=== PATIENT | female | born 1965 | race Caucasian/White ===

== ENCOUNTER 2017-11-29 13:58 | Emergency (ER) | payer BC ==
[2017-11-29] MEDS ORDERED: SODIUM CHLORIDE 0.9% 500 ML IV STA (14:39)
--- NOTE | 2017-11-29 14:43 | ED ---
General Adult HPI - General Chief complaint: Allergic Reaction Stated complaint: allergic reaction to PCN Time Seen by Provider: 11/29/17 14:31 Source: patient, RN notes reviewed, old records reviewed Mode of arrival: wheelchair Limitations: no limitations - History of Present Illness Initial comments: 52-year-old female presents for evaluation of what she believes is an ALLERGIC reaction. Patient has no chronic medical problems. She states that 2 days ago she saw her family doctor who prescribed amoxicillin for concerns of sinus infection. Patient denied any nasal congestion, no sore throat , rhinorrhea. She taken amoxicillin most recently yesterday evening, she had been feeling better yesterday evening, she did develop a rash that was on her chest and upper extremities. She called her family doctor who changed her prescription. This morning she began to feel worse, worsening rash which was predominately on her chest. She did take Benadryl prior to arrival. Patient denies cough, denies fever. She states she's had some pain in her neck. She denies lul chest pain. Patient has also had some abdominal cramping. No significant nausea vomiting or diarrhea. - Related Data Previous Rx's Medication Instructions Recorded methylPREDNISolone Dose Pack 4 mg PO DIRECTED #21 package 11/29/17 [Medrol Dose Pack] Allergies Allergy/AdvReac Type Severity Reaction Status Date / Time amoxicillin Allergy Rash/Hives Verified 11/29/17 14:57 Review of Systems ROS Statement: Those systems with pertinent positive or pertinent negative responses have been documented in the HPI. ROS Other: All systems not noted in ROS Statement are negative. Past Medical History Past Medical History: No Reported History History of Any Multi-Drug Resistant Organisms: None Reported Past Surgical History: No Surgical Hx Reported Additional Past Surgical History / Comment(s): molar Past Psychological History: No Psychological Hx Reported Smoking Status: Never smoker Past Alcohol Use History: Rare Past Drug Use History: None Reported General Exam Limitations: no limitations General appearance: alert, in no apparent distress Head exam: Present: atraumatic, normocephalic Eye exam: Present: normal appearance, PERRL ENT exam: Present: normal exam Neck exam: Present: normal inspection. Absent: tenderness, meningismus Respiratory exam: Present: normal lung sounds bilaterally. Absent: respiratory distress, wheezes Cardiovascular Exam: Present: regular rate, normal rhythm GI/Abdominal exam: Present: soft. Absent: distended, tenderness Extremities exam: Present: normal inspection, normal capillary refill. Absent: pedal edema Neurological exam: Present: alert, oriented X3, CN II-XII intact. Absent: motor sensory deficit Psychiatric exam: Present: normal affect, normal mood Skin exam: Present: warm, dry, rash (Patient has some erythema on her chest, and rash on the extremities is minimal), erythema. Absent: cyanosis, diaphoretic, urticaria, vesicles, petechiae Course Vital Signs 11/29/17 11/29/17 11/29/17 14:05 14:10 15:05 Temperature 98.3 F Pulse Rate 89 88 84 Respiratory 16 18 Rate Blood Pressure 152/86 154/95 O2 Sat by Pulse 98 100 100 Oximetry 11/29/17 15:35 Temperature Pulse Rate 68 Respiratory 16 Rate Blood Pressure 143/76 O2 Sat by Pulse 100 Oximetry EKG Findings - EKG Comments: EKG Findings:: EKG: Sinus rhythm, possible left atrial enlargement, no ST segment elevation or depression rate of 75, IL interval 1:30, QRS duration 82, QTC 464 Medical Decision Making - Medical Decision Making 52-year-old female presenting for suspected ALLERGIC reaction. Patient did have a neck pain associated with this. No significant dyspnea. She was on amoxicillin for sinus infection although she does not have a history that supported this. Workup includes EKG which is normal sinus rhythm with no ST segment changes. Chest x-ray that shows concern for bronchitis, laboratory studies reveal a normal hemoglobin, normal white blood cell count, normal electrolytes, troponin is negative. D-dimer was obtained, this was positive at 10.9, CT angiography was obtained this is negative for PE but did show bronchitis as well as a 2.3 cm nodular density. Patient is informed of this and will follow-up with her primary care physician regarding this nodule. There is also bronchitis finding this is suggestive of viral infection. Regarding the patient's significant elevated d-dimer, she has no lower extremity pain or swelling. She will monitor for calf tenderness or swelling and present for evaluation of DVT if the cyst present. Patient will follow-up with her primary care physician. She will return with worsening or changing symptoms. She is instructed to stop amoxicillin. - Lab Data Result diagrams: 11/29/17 15:00 11/29/17 15:00 Lab Results 06/23/18 06/23/18 06/23/18 Range/Units 15:00 15:00 15:00 WBC 5.6 (3.8-10.6) k/uL RBC 5.15 (3.80-5.40) m/uL Hgb 16.1 H (11.4-16.0) gm/dL Hct 45.6 (34.0-46.0) % MCV 88.5 (80.0-100.0) fL MCH 31.2 (25.0-35.0) pg MCHC 35.2 (31.0-37.0) g/dL RDW 12.8 (11.5-15.5) % Plt Count 165 (150-450) k/uL Neutrophils % (Manual) 75 % Band Neutrophils % 2 % Lymphocytes % (Manual) 10 % Monocytes % (Manual) 7 % Eosinophils % (Manual) 6 % Neutrophils # (Manual) 4.30 (1.3-7.7) k/uL Lymphocytes # (Manual) 0.56 L (1.0-4.8) k/uL Monocytes # (Manual) 0.39 (0-1.0) k/uL Eosinophils # (Manual) 0.34 (0-0.7) k/uL Nucleated RBCs 0 (0-0) /100 WBC Manual Slide Review Performed RBC Morphology Normal PT (9.0-12.0) sec INR (<1.2) APTT (22.0-30.0) sec D-Dimer (<0.60) mg/L FEU Sodium 139 (137-145) mmol/L Potassium 3.6 (3.5-5.1) mmol/L Chloride 99 (98-107) mmol/L Carbon Dioxide 29 (22-30) mmol/L Anion Gap 11 mmol/L BUN 12 (7-17) mg/dL Creatinine 0.70 (0.52-1.04) mg/dL Est GFR (CKD-EPI)AfAm >90 (>60 ml/min/1.73 sqM) Est GFR (CKD-EPI)NonAf >90 (>60 ml/min/1.73 sqM) Glucose 91 (74-99) mg/dL Calcium 9.0 (8.4-10.2) mg/dL Magnesium 2.2 (1.6-2.3) mg/dL Total Bilirubin 0.4 (0.2-1.3) mg/dL AST 97 H (14-36) U/L ALT 75 H (9-52) U/L Alkaline Phosphatase 72 (38-126) U/L Total Creatine Kinase 28 L (30-135) U/L CK-MB (CK-2) <0.2 (0.0-2.4) ng/mL CK-MB (CK-2) Rel Index Troponin I <0.012 (0.000-0.034) ng/mL NT-Pro-B Natriuret Pep pg/mL Total Protein 7.1 (6.3-8.2) g/dL Albumin 4.1 (3.5-5.0) g/dL Urine Color Urine Appearance (Clear) Urine pH (5.0-8.0) Ur Specific [place] (1.001-1.035) Urine Protein (Negative) Urine Glucose (UA) (Negative) Urine Ketones (Negative) Urine Blood (Negative) Urine Nitrite (Negative) Urine Bilirubin (Negative) Urine Urobilinogen (<2.0) mg/dL Ur Leukocyte Esterase (Negative) Urine RBC (0-5) /hpf Urine WBC (0-5) /hpf Ur Squamous Epith Cells (0-4) /hpf Hyaline Casts (0-2) /lpf Urine Mucus (None) /hpf 11/29/17 11/29/17 11/29/17 Range/Units 15:00 15:00 15:00 WBC (3.8-10.6) k/uL RBC (3.80-5.40) m/uL Hgb (11.4-16.0) gm/dL Hct (34.0-46.0) % MCV (80.0-100.0) fL MCH (25.0-35.0) pg MCHC (31.0-37.0) g/dL RDW (11.5-15.5) % Plt Count (150-450) k/uL Neutrophils % (Manual) % Band Neutrophils % % Lymphocytes % (Manual) % Monocytes % (Manual) % Eosinophils % (Manual) % Neutrophils # (Manual) (1.3-7.7) k/uL Lymphocytes # (Manual) (1.0-4.8) k/uL Monocytes # (Manual) (0-1.0) k/uL Eosinophils # (Manual) (0-0.7) k/uL Nucleated RBCs (0-0) /100 WBC Manual Slide Review RBC Morphology PT 9.6 (9.0-12.0) sec INR 1.0 (<1.2) APTT 26.0 (22.0-30.0) sec D-Dimer 10.99 H (<0.60) mg/L FEU Sodium (137-145) mmol/L Potassium (3.5-5.1) mmol/L Chloride (98-107) mmol/L Carbon Dioxide (22-30) mmol/L Anion Gap mmol/L BUN (7-17) mg/dL Creatinine (0.52-1.04) mg/dL Est GFR (CKD-EPI)AfAm (>60 ml/min/1.73 sqM) Est GFR (CKD-EPI)NonAf (>60 ml/min/1.73 sqM) Glucose (74-99) mg/dL Calcium (8.4-10.2) mg/dL Magnesium (1.6-2.3) mg/dL Total Bilirubin (0.2-1.3) mg/dL AST (14-36) U/L ALT (9-52) U/L Alkaline Phosphatase (38-126) U/L Total Creatine Kinase (30-135) U/L CK-MB (CK-2) (0.0-2.4) ng/mL CK-MB (CK-2) Rel Index Troponin I (0.000-0.034) ng/mL NT-Pro-B Natriuret Pep 107 pg/mL Total Protein (6.3-8.2) g/dL Albumin (3.5-5.0) g/dL Urine Color Yellow Urine Appearance Cloudy H (Clear) Urine pH 6.0 (5.0-8.0) Ur Specific [place] 1.014 (1.001-1.035) Urine Protein 1+ H (Negative) Urine Glucose (UA) Negative (Negative) Urine Ketones Trace H (Negative) Urine Blood Small H (Negative) Urine Nitrite Negative (Negative) Urine Bilirubin Negative (Negative) Urine Urobilinogen 4.0 (<2.0) mg/dL Ur Leukocyte Esterase Negative (Negative) Urine RBC 2 (0-5) /hpf Urine WBC 2 (0-5) /hpf Ur Squamous Epith Cells 3 (0-4) /hpf Hyaline Casts 6 H (0-2) /lpf Urine Mucus Many H (None) /hpf Disposition Clinical Impression: Adverse reaction to drug, Viral infection Disposition: HOME SELF-CARE Condition: Good Instructions: Antibiotic Medication Allergy (ED), General Allergic Reaction (ED ) Additional Instructions: Please follow up with her primary care physician. Prescriptions: methylPREDNISolone Dose Pack [Medrol Dose Pack] 4 mg PO DIRECTED #21 package Is patient prescribed a controlled substance at d/c from ED?: No Referrals: None,Stated [REFERRING] - 1-2 days Time of Disposition: 17:40
[2017-11-29 15:44] LABS: Appearance,Urine Cloudy (Clear); Bilirubin,Urine Negative (Negative); Blood,Urine Small (Negative); Color,Urine Yellow; Glucose,Urine (UA) Negative (Negative); Hyaline Casts,Urine 6 /lpf (0-2); Ketones,Urine Trace (Negative); Leukocyte Esterase,Urine Negative (Negative); Mucus,Urine Many /hpf; Nitrite,Urine Negative (Negative); Protein,Urine 1+ (Negative); RBC,Urine 2 /hpf (0-5); Specific Gravity,Urine 1.014 (1.001-1.035); Squamous Epithelial Cell,Urine 3 /hpf (0-4); WBC,Urine 2 /hpf (0-5)
[2017-11-29 15:55] VITALS: RESP 16
[2017-11-29 15:57] LABS: ALT 75 U/L (9-52); AST 97 U/L (14-36); Albumin 4.1 g/dL (3.5-5.0); Alkaline Phosphatase 72 U/L (38-126); Anion Gap 11 mmol/L; Blood Urea Nitrogen 12 mg/dL (7-17); Carbon Dioxide 29 mmol/L (22-30); Chloride 99 mmol/L (98-107); Glucose 91 mg/dL (74-99); Magnesium 2.2 mg/dL (1.6-2.3); Potassium 3.6 mmol/L (3.5-5.1); Sodium 139 mmol/L (137-145); Total Bilirubin 0.4 mg/dL (0.2-1.3); Total Protein 7.1 g/dL (6.3-8.2)
[2017-11-29 15:58] LABS: Creatine Kinase 28 U/L (30-135)
[2017-11-29 16:01] LABS: Prothrombin Time 9.6 sec (9.0-12.0)
[2017-11-29 16:10] LABS: HCT 45.6 % (34.0-46.0); HGB 16.1 gm/dL (11.4-16.0); MCH 31.2 pg (25.0-35.0); MCHC 35.2 g/dL (31.0-37.0); MCV 88.5 fL (80.0-100.0); Mean Platelet Volume 7.2; Platelet Count 165 k/uL (150-450); RBC 5.15 m/uL (3.80-5.40); RDW 12.8 % (11.5-15.5); WBC 5.6 k/uL (3.8-10.6)
[2017-11-29 16:11] LABS: Creatine Kinase MB <0.2 ng/mL (0.0-2.4); Troponin I <0.012 ng/mL (0.000-0.034)
[2017-11-29 16:12] LABS: D-Dimer 10.99 mg/L FEU (<0.60)
--- NOTE | 2017-11-29 16:16 | XR ---
EXAMINATION TYPE: XR chest 2V DATE OF EXAM: 11/29/2017 COMPARISON: None HISTORY: 52-year-old female with chest pain and shortness of breath TECHNIQUE: PA and lateral views FINDINGS: The heart is normal size. Aorta and pulmonary vasculature are within normal limits. Mild interstitial prominence and mild peribronchial cuffing. No consolidation or pleural effusion. IMPRESSION: Some changes which may represent bronchitis or asthma. Otherwise, no acute cardiopulmonary process.
[2017-11-29 16:30] LABS: Band Neutrophils % 2 %; Eosinophils # (M) 0.34 k/uL (0-0.7); Lymphocytes # (M) 0.56 k/uL (1.0-4.8); Monocytes # (M) 0.39 k/uL (0-1.0); Neutrophils % (M) 75 %; Nucleated Red Blood Cells 0 /100 WBC (0-0); Total Cells Counted 100
--- NOTE | 2017-11-29 17:21 | CT ---
EXAMINATION TYPE: CT angio chest DATE OF EXAM: 11/29/2017 COMPARISON: Correlation radiographs same day HISTORY: 52-year-old female with pain and anxiety. There TECHNIQUE: Contiguous axial scanning of the chest performed with IV Contrast, patient injected with 1 00 mL of Isovue 370. Coronal/sagittal MIP reconstructions performed. CT DLP: 508 mGycm Automated exposure control for dose reduction was used. FINDINGS: Small 5 mm hypodense nodule left lobe of the thyroid gland. Heart upper limits of normal in size without pericardial effusion. Aorta normal caliber with conventional arch vessel branching anatomy. Scattered small mediastinal lymph nodes. No thoracic lymphadenopathy by CT size criteria. Satisfactory opacification of the pulmonary arterial system. There is mild respiratory motion artifac t limiting assessment. No definite pulmonary embolus. Mosaic attenuation within the lower lungs with mild diffuse bronchial wall thickening. Strandy areas of atelectasis present. No consolidation or pleural effusion. There is 2.3 cm nodularity at the media l left base. Some mild motion artifact limiting assessment. Visualized portions of the upper abdomen show no gross abnormality. Bones: No osseous destructive process. IMPRESSION: 1. NO PULMONARY EMBOLUS SEEN. 2. MOSAIC ATTENUATION AND BRONCHIAL WALL THICKENING. CORRELATE FOR SMALL AIRWAYS DISEASE WITH BRONCHI TIS OR ASTHMA. 3. A 2.3 CM NODULAR DENSITY AT THE MEDIAL LEFT BASE. ON RECONSTRUCTED IMAGES, THE SPLEEN MAY BE CLAU GUOUS WITH THIS AREA AND FOCAL HEMIDIAPHRAGMATIC EVENTRATION IS POSSIBLE RATHER THAN A PULMONARY NODU LE. THREE-MONTH FOLLOW-UP CONTRAST ENHANCED CT RECOMMENDED TO REASSESS AND EXCLUDE A MASS.
[2017-11-29 18:11] VITALS: BP 135/75; PULSE 76; TEMP 98.5
== END 2017-11-29 18:08 | disposition home or self-care (01) ==
LOC: EC 13:58
DX: B34.9 Viral infection, unspecified (principal); T36.0X5A Adverse effect of penicillins, initial encounter; J40 Bronchitis, not specified as acute or chronic; R79.89 Other specified abnormal findings of blood chemistry; Z88.0 Allergy status to penicillin
CPT/HCPCS: 99284; 96360; 36415; 93005; 85379; 83880; 80053; 82550; 82553; 83735; 84484; 85025; 85610; 85730; 81001; 71046; 71275; Q9967